=== PATIENT | female | born 1990 | race Caucasian/White ===

== ENCOUNTER → 2021-12-18 | Outpatient (REF) | payer OTHER, SELFPAY ==
[~2021-12-18] MED LIST: ACET1TAB55 PO; BENA25CA4 PO; COLA100C5 PO; CYMB1CAP4 PO; FERR325T3 PO; IBUP-1022 PO; PRENTAB9 PO; SING10TA32 PO
== END ==
LOC: M PLALAB 08:45
PROVIDERS: ATTEND Advanced Practice Midwife
DX: R30.0 Dysuria (principal)

== ENCOUNTER 2022-01-21 01:50 | Inpatient (IN) | payer OTHER, SELFPAY ==
[2022-01-21] VITALS (38 sets, daily range): BP systolic 98–142; BP diastolic 52–83
[~2022-01-21] VITALS: Ht 160 cm; Wt 71.4 kg
[2022-01-21] MEDS ORDERED: PRENTAB9 PO (02:22)
[2022-01-21] MEDS ORDERED: CYMB1CAP4 PO (02:22)
[2022-01-21] MEDS ORDERED: BENA25CA4 PO (02:22)
[2022-01-21] MEDS ORDERED: FERR325T3 PO (02:22)
[2022-01-21] MEDS ORDERED: SING10TA32 PO (02:22)
[2022-01-21] MEDS ORDERED: HOME MED LIST COMPLETE! XX SCH (02:25)
[2022-01-21] MEDS ORDERED: PENICILLIN G POTASSIUM IV 5 MU in D5W MINI-BAG PLUS 100 ML IV STA (03:07)
[2022-01-21] MEDS ORDERED: OXYTOCIN DRIP 30 UNITS in IV 1 EA IV PRN ×8 (03:10→09:10)
[2022-01-21] MEDS ORDERED: LIDOCAINE 1% MDV 20ML VIAL INFIL PRN (03:10)
[2022-01-21] MEDS: LR 1,000 ML IV SCH ×2 (03:56→09:49)
[2022-01-21 04:19] LABS: HEMATOCRIT 37.1 % (36.0-47.0); HEMOGLOBIN 12.1 g/dl (12.0-15.5); MEAN CORPUSCULAR HEMOGLOBIN 29.7 pg (27.0-33.0); MEAN CORPUSCULAR HGB CONC 32.6 g/dl (32.0-36.5); MEAN CORPUSCULAR VOLUME 90.9 fl (80.0-96.0); PLATELET COUNT, AUTOMATED 196 10^3/uL (150-450); RED BLOOD COUNT 4.08 10^6/uL (4.00-5.40); WHITE BLOOD COUNT 10.6 10^3/uL (4.0-10.0)
[2022-01-21] MEDS ORDERED: FENTANYL 2MCG/ML ROPIVACAINE 0.2% IN 0.9% NACL 100ML IVBAG As Ordered ONE (06:27)
[2022-01-21] MEDS ORDERED: ONDANSETRON 4MG 2ML VIAL IV PRN ×2 (07:00)
[2022-01-21] MEDS ORDERED: LR 500 ML IV PRN ×2 (07:00)
[2022-01-21] MEDS ORDERED: diphenhydrAMINE 50MG/ML VIAL (J1200) IV PRN ×2 (07:00)
[2022-01-21] MEDS ORDERED: NALOXONE INJ 0.4MG/1ML VIAL (J2310 PER 1MG) IV PRN ×2 (07:00)
[2022-01-21] MEDS ORDERED: EPIDURAL/PCA KEYS XX PRN ×2 (07:00)
[2022-01-21] MEDS ORDERED: ePHEDrine SULFATE 25 MG/5 ML(5MG/ML) SYRINGE IVP PRN ×2 (07:00)
[2022-01-21] MEDS: PENICILLIN G POTASSIUM IV 2.5 MU in IV 1 EA IV SCH ×2 (08:26→13:44)
[2022-01-21] MEDS: FENTANYL/ROPIVACAINE/NACL BAG 100 ML EPIDURAL SCH ×2 (08:28→14:56)
[2022-01-21] MEDS ORDERED: METHYLERGONOVINE MALEATE 0.2 MG/ML VIAL (J2210) IM PRN (09:10)
[2022-01-21] MEDS ORDERED: OXYTOCIN INJ 10 UNITS/ML VIAL (J2590) IV PRN (09:10)
[2022-01-21] MEDS ORDERED: OXYTOCIN DRIP 30 UNITS in IV 1 EA IV SCH ×2 (09:10→17:30)
[2022-01-21 17:23] LABS: CORD GAS ABE V -5.8; CORD GAS HCO3 V 21.4 MEQ/L; CORD GAS O2 SAT V 58.4 %; CORD GAS PCO2 V 48.6 mmHg; CORD GAS PH V 7.262 UNITS; CORD GAS PO2 V 25.7 mmHg; CORD GAS SBC V 18.9 MEQ/L; CORD GAS TCO2 V 22.9 MEQ/L
[2022-01-21 17:25] LABS: CORD GAS ABE A -6.1; CORD GAS HCO3 A 21.1 MEQ/L; CORD GAS O2 SAT A 54.3 %; CORD GAS PCO2 A 48.3 mmHg; CORD GAS PH A 7.259 UNITS; CORD GAS PO2 A 24.4 mmHg; CORD GAS SBC A 18.6 MEQ/L; CORD GAS TCO2 A 22.6 MEQ/L
[2022-01-21] MEDS ORDERED: LR 1,000 ML IV SCH (17:30)
[2022-01-21] MEDS ORDERED: METHYLERGONOVINE MALEATE 0.2 MG TAB PO PRN (17:30)
[2022-01-21] MEDS ORDERED: OXYTOCIN INJ 10 UNITS/ML VIAL (J2590) IV ONE (17:30)
[2022-01-21] MEDS ORDERED: ANUSOL HC CREAM 30GM TOP PRN (17:30)
[2022-01-21] MEDS ORDERED: IBUPROFEN 600MG TAB PO PRN (17:30)
[2022-01-21] MEDS ORDERED: DOCUSATE SODIUM 100MG CAPSULE PO PRN (17:30)
[2022-01-21] MEDS ORDERED: MOM 30ML SUSPENSION UDC PO PRN (17:30)
[2022-01-21] MEDS ORDERED: OXYTOCIN DRIP 30 UNITS in IV 1 EA IV ONE (17:30)
[2022-01-21] MEDS ORDERED: RHOGAM 300 MCG (1500 IU) INJ (J2790) IM SCH (17:30)
[2022-01-21] MEDS: DIBUCAINE 1% OINTMENT 30GM TOP PRN (22:13)
[2022-01-21] MEDS: ACETAMINOPHEN TAB 650MG DOSE (2X325MG) PO PRN (22:14)
[2022-01-22] MEDS: ACETAMINOPHEN TAB 650MG DOSE (2X325MG) PO PRN (03:21)
[2022-01-22 06:00] VITALS: BP 125/76
[2022-01-22 06:41] LABS: HEMATOCRIT 31.3 % (36.0-47.0); HEMOGLOBIN 10.2 g/dl (12.0-15.5); MEAN CORPUSCULAR HEMOGLOBIN 29.6 pg (27.0-33.0); MEAN CORPUSCULAR HGB CONC 32.6 g/dl (32.0-36.5); MEAN CORPUSCULAR VOLUME 90.7 fl (80.0-96.0); PLATELET COUNT, AUTOMATED 152 10^3/uL (150-450); RED BLOOD COUNT 3.45 10^6/uL (4.00-5.40); WHITE BLOOD COUNT 12.2 10^3/uL (4.0-10.0)
[2022-01-22] MEDS: DULoxetine 20 MG CAP (CYMBALTA) PO SCH (07:28)
[2022-01-22] MEDS: PRENATAL VITAMINS CHEWABLE TABLET PO SCH (07:28)
[2022-01-22] MEDS: ACETAMINOPHEN 500 MG TAB PO PRN ×2 (11:25→20:30)
[2022-01-22 18:00] VITALS: BP 126/69
[2022-01-23] MEDS ORDERED: ACET1TAB55 PO (05:54)
[2022-01-23] MEDS ORDERED: IBUP-1022 PO (05:54)
[2022-01-23] MEDS ORDERED: COLA100C5 PO (05:54)
[2022-01-23 06:00] VITALS: BP 140/70
[2022-01-23] MEDS: PRENATAL VITAMINS CHEWABLE TABLET PO SCH (08:01)
[2022-01-23] MEDS: DULoxetine 20 MG CAP (CYMBALTA) PO SCH (08:01)
[2022-01-23] MEDS: DIBUCAINE 1% OINTMENT 30GM TOP PRN (08:59)
[2022-01-23] MEDS ORDERED: MEASLES,MUMPS,RUBELLA VACCINE INJ (MMR-II) (90707) SC.IMMUN ONE (09:00)
== END 2022-01-23 11:15 | disposition home or self-care (01) | DRG 807 ==
LOC: M LDO 01:50 → M LDI 03:04 → M OBS 20:22
PROVIDERS: ADMIT Obstetrics & Gynecology; ATTEND Obstetrics & Gynecology
PROC: 10E0XZZ Delivery of Products of Conception, External Approach (ICD-10-PCS; principal; 2022-01-21)
PROC: 10907ZC Drainage of Amniotic Fluid, Therapeutic from Products of Conception, Via Natural or Artificial Opening (ICD-10-PCS; 2022-01-21)
PROC: 0HQ9XZZ Repair Perineum Skin, External Approach (ICD-10-PCS; 2022-01-21)
DX: O69.1XX0 Labor and delivery complicated by cord around neck, with compression, not applicable or unspecified (principal); Z37.0 Single live birth; Z3A.37 37 weeks gestation of pregnancy; O70.0 First degree perineal laceration during delivery; F32.A Depression, unspecified; O99.344 Other mental disorders complicating childbirth; Z79.899 Other long term (current) drug therapy

== ENCOUNTER → 2022-03-12 | Outpatient (REF) | LOC: M LAB 14:26 | PROVIDERS: ATTEND Nurse Practitioner Family | DX: Z02.1 Encounter for pre-employment examination (principal) ==

== ENCOUNTER 2022-05-03 12:46 | Emergency (ER) | payer OTHER ==
[~2022-05-03] VITALS: Ht 160 cm; Wt 66.3 kg
[2022-05-03] MEDS ORDERED: methocarbamoL 750 MG TAB PO ONE (13:50)
[2022-05-03] MEDS ORDERED: KETOROLAC 60MG 2ML VIAL IM ONE (13:50)
[2022-05-03] MEDS ORDERED: LIDOCAINE 5% (LIDODERM) PATCH TD ONE (13:50)
[2022-05-03 14:06] LABS: APPEARANCE, URINE MANUAL HAZY (CLEAR); COLOR, URINE MANUAL YELLOW (YELLOW); GLUCOSE, URINE (UA) MANUAL NEGATIVE (NEGATIVE); KETONE, URINE MANUAL NEGATIVE (NEGATIVE); PH,URINE MAN 6.5 UNITS (5.0 - 7.0); PROTEIN, URINE MANUAL 1+ mg/dL (NEGATIVE)
[2022-05-03 14:07] LABS: BILIRUBIN, URINE MANUAL NEGATIVE (NEGATIVE); BLOOD URINE MANUAL NEGATIVE (NEGATIVE); NITRITE, URINE MANUAL NEGATIVE (NEGATIVE); UROBILINOGEN, URINE MANUAL NORMAL (NORMAL)
[2022-05-03 14:21] LABS: LEUKOCYTE ESTERASE, URINE MAN TRACE (NEGATIVE)
[2022-05-03 14:22] LABS: AMORPHOUS SEDIMENT, URINE SMALL AMOUNT (NEGATIVE); BACTERIA, URINE SMALL AMOUNT; HYALINE CAST, URINE NONE SEEN /lpf (0-1); MUCUS, URINE LARGE AMOUNT (NEGATIVE); RBC, URINE 0-1 /hpf (0-3); SQUAMOUS EPITHELIAL CELL URINE SMALL AMOUNT /hpf (SMALL AMT)
[2022-05-03] MEDS ORDERED: NAPR-837 PO (14:49)
[2022-05-03] MEDS ORDERED: METH-1165 PO (14:49)
[2022-05-03] MEDS ORDERED: ASPE4PAD TOP (14:49)
[2022-05-03 15:02] VITALS: BP 114/55
[2022-05-04] MEDS ORDERED: **NOTE PATIENT COMMENT** MISC XX ONE (02:00)
== END 2022-05-03 15:07 | disposition home or self-care (01) ==
LOC: M ED 12:46
DX: M54.50 Low back pain, unspecified (principal); Z91.040 Latex allergy status; Z88.5 Allergy status to narcotic agent; Z79.899 Other long term (current) drug therapy
CPT/HCPCS: 72110; 81000; 96372; 99284; J1885

== ENCOUNTER → 2022-08-06 | Outpatient (CLI) | payer OTHER ==
[~2022-08-06] MED LIST changes: +ASPE4PAD TOP; +METH-1165 PO; +NAPR-837 PO; +PROA1AER2 INH; +QC F0.52 PO
== END ==
LOC: M LABSMTC 09:10
PROVIDERS: ATTEND Anesthesiology
DX: Z01.812 Encounter for preprocedural laboratory examination (principal); Z11.52 Encounter for screening for COVID-19

== ENCOUNTER 2022-08-11 12:35 | Day surgery (SDC) | payer OTHER ==
[~2022-08-11] VITALS: Ht 160 cm; Wt 67.9 kg
[~2022-08-11 12:35] MED LIST changes: +BUPIVACAINE HCL 0.25% 10ML VIAL As Ordered ONE
[2022-08-11] MEDS ORDERED: LR 1,000 ML IV SCH ×3 (12:55→17:25)
[2022-08-11 13:05] LABS: HEMATOCRIT 38.7 % (36.0-47.0); HEMOGLOBIN 12.6 g/dl (12.0-15.5); MEAN CORPUSCULAR HEMOGLOBIN 30.9 pg (27.0-33.0); MEAN CORPUSCULAR HGB CONC 32.6 g/dl (32.0-36.5); MEAN CORPUSCULAR VOLUME 94.9 fl (80.0-96.0); PLATELET COUNT, AUTOMATED 243 10^3/uL (150-450); RED BLOOD COUNT 4.08 10^6/uL (4.00-5.40); WHITE BLOOD COUNT 6.5 10^3/uL (4.0-10.0)
[2022-08-11] MEDS ORDERED: SUGAMMADEX SODIUM 500 MG/5 ML VIAL (BRIDION) As Ordered ONE (14:41)
[2022-08-11] MEDS ORDERED: fentaNYL 250 MCG/5 ML INJECTION As Ordered ONE (14:41)
[2022-08-11] MEDS ORDERED: MIDAZOLAM INJ 2MG/2ML VIAL As Ordered ONE (14:41)
[2022-08-11] MEDS ORDERED: propofoL 200 MG/20 ML VIAL As Ordered ONE (14:41)
[2022-08-11] MEDS ORDERED: ROCURONIUM BROMIDE 50MG/5ML VIAL As Ordered ONE (14:41)
[2022-08-11] MEDS ORDERED: KETOROLAC 60MG 2ML VIAL As Ordered ONE (14:41)
[2022-08-11] MEDS ORDERED: ONDANSETRON 4MG 2ML VIAL As Ordered ONE (14:41)
[2022-08-11] MEDS ORDERED: LIDOCAINE 2% 100MG/5ML SDV (FOR ANES.) As Ordered ONE (14:41)
[2022-08-11] MEDS ORDERED: IBUP-1022 PO (15:29)
[2022-08-11] MEDS ORDERED: ONDANSETRON 4MG 2ML VIAL IV PRN (16:15)
[2022-08-11] MEDS ORDERED: HYDROMORPHONE HCL 0.5 MG/ 0.5 ML SYRINGE IV PRN (16:15)
[2022-08-11] MEDS ORDERED: fentaNYL 100 MCG/2 ML INJECTION IV PRN (16:15)
[2022-08-11] MEDS ORDERED: HYDR-3713 PO (17:08)
[2022-08-11] MEDS ORDERED: PERCOCET 5MG/325MG TAB PO PRN (17:30)
[2022-08-11 17:55] VITALS: BP 118/63
== END 2022-08-11 18:02 | disposition home or self-care (01) ==
LOC: M SDC 12:35
PROVIDERS: ATTEND Specialist
DX: Z30.2 Encounter for sterilization (principal); K21.9 Gastro-esophageal reflux disease without esophagitis; J45.909 Unspecified asthma, uncomplicated; F41.9 Anxiety disorder, unspecified; F32.A Depression, unspecified; Z79.51 Long term (current) use of inhaled steroids; Z79.899 Other long term (current) drug therapy; Z88.5 Allergy status to narcotic agent; Z91.040 Latex allergy status; Z88.8 Allergy status to other drugs, medicaments and biological substances
CPT/HCPCS: 36415; 58661; 81025; 85027; 88302; J1100; J2405

== ENCOUNTER → 2022-11-10 | Outpatient (REF) | payer OTHER ==
[~2022-11-10] MED LIST changes: -BUPIVACAINE HCL 0.25% 10ML VIAL As Ordered ONE; +HYDR-3713 PO; +MONT-5 PO; -SING10TA32 PO
== END ==
LOC: M SFHCWAGY 10:13
PROVIDERS: ATTEND Nurse Practitioner Family
DX: Z12.4 Encounter for screening for malignant neoplasm of cervix (principal)